=== PATIENT | female | born 1965 | race Caucasian/White ===

== ENCOUNTER 2023-03-24 10:13 | Observation (INO) ==
[2023-03-24] MEDS ORDERED: KETOROLAC TROMETHAMINE 15 MG/ML VIAL IV STA (10:32)
[2023-03-24] MEDS ORDERED: ONDANSETRON INJ 2 MG/ML 2 ML VIAL IV STA (10:32)
[2023-03-24] MEDS ORDERED: SODIUM CHLORIDE 0.9% 500 ML IV STA (10:32)
--- NOTE | 2023-03-24 10:37 | Emergency Department Note ---
Impression & Plan Acute appendicitis ED Provider Note Provider: Harry Dudley MD DATE OF SERVICE: 03/24/2023 CHIEF COMPLAINT: Right lower quadrant pain HISTORY OF PRESENT ILLNESS: Patient is a 57-year-old female history of hypertension and obesity presenting here today with the onset last night just before bed of some pain starting in her right lower abdomen. This is persisted overnight and was difficult for her to sleep. Continued today and worsened some. Denies any urinary issues or diarrhea. States she had onset of nausea and vomiting this morning. Given ongoing and worsening pain with the symptoms came here for evaluation. No fevers or trauma reported. Again denies urinary symptoms. Denies significant pain in the back. Denies left-sided abdominal pain. Denies heartburn or chest pain. No radiation of the pain down the legs. PAST MEDICAL HISTORY: As noted above MEDICATIONS: Reviewed all medications SOCIAL HISTORY: Non-smoker PHYSICAL EXAM: GENERAL: alert and oriented in no acute distress on stretcher Head: normocephalic and atraumatic EYES: No injection, discharge or icterus. NECK: Trachea midline. ENT: Mucous membranes pink and moist. LUNGS: Airway patent. No retractions or tachypnea HEART: Regular rate and rhythm. ABDOMEN: Soft with some localized tenderness in the right lower quadrant. No left-sided abdominal tenderness. Negative Graf sign. No significant right flank or CVA tenderness appreciated. SKIN: Acyanotic, warm, dry, without rashes EXTREMITIES: Without swelling, tenderness or deformity NEUROLOGICAL: No focal deficits. No aphasia. No facial droop or slurred speech. Ambulatory. EK bpm sinus tachycardia PVC or PAC. No acute ST segment elevation with a QTc of 422. CONTINUOUS CARDIAC MONITORING: was ordered and showed a heart rate of 100s-110s bpm in sinus tachycardia Patient's laboratory studies and imaging reviewed. Differential includes Appendicitis, infections, diverticulitis, UTI, obstruction, mesenteric ischemia, aortic pathology, inflammatory bowel disease, renal colic, PUD, pancreatitis, biliary pathology, hernia, volvulus, constipation, as well as other pathologies. IMPRESSION/MEDICAL DECISION MAKING: Patient presents onset last night of some pain in the right lower quadrant. Does not radiate to the flank no CVA tenderness. Has been fairly constant nature. Seems bit atypical for kidney stone but on the differential. Question possible gastrointestinal issue such as possible appendicitis or colitis althou gh not having diarrhea. Does report some nausea and episode of vomiting. Denies any chest pain or heartburn symptoms. Not significant tender in the upper abdomen and lower suspicion for biliary pathology at this time. Will complete EKG and troponin given her age for completeness however. Basic labs sent. Will complete CT scan of the pelvis to look for intra-abdominal complications prickly in the right lower quadrant region. Blood work with significant leukocytosis to 16.3. Slight anemia 11.6. Normal platelet count. No evidence of significant chemistry abnormalities or signs of hepatitis or pancreatitis. Troponin within normal limits. Urinalysis with some blood but no signs of infection otherwise. CT abdomen pelvis with findings consistent with acute appendicitis with 13 mm appendix without evidence of perforation or abscess. Updated the patient and at bedside. Ordered Zosyn for antibiotic coverage. Patient's pain is a bit improved with medication here. N.p.o. since yesterday. Discussed with the general surgery team will evaluate for further care. DIAGNOSIS: Acute appendicitis DISPOSITION: Discussed with the general surgery team here for further care with the plan for OR Past Med/Surg History Medical History HTN (hypertension), benign Surgical History History of tooth extraction Hx of section Hx of eye surgery Family History Grandmother Breast cancer Other No family history of adverse response to anesthesia Denies family history of Ovarian cancer Prostate cancer Myocardial infarction Colorectal cancer Social History Smoking Status: Never smoker Second Hand Exposure: Yes ( A CHILD); Do You Dip or Chew Tobacco: No; Hx Alcohol Use: Yes Alcohol Intake Frequency: Monthly or Less Alcohol Intake Frequency Comment: Occasional Hx Substance Use: No Preferred Language: Guinean Communication Ability: Effective Maintenance Mechanic Technician Required: No Beliefs That Will Affect Care: None marital status: Current Living Situation: Spouse current occupational status: employed current occupation: dispatcher How many Children do You have: 3 Feels Safe at Home: Yes Childhood Exposure to Second-Hand Smoke: Yes Diet: regular caffeine: Yes Dental Care, Regularly: Yes Physical Activity Frequency: Does not Exercise Seatbelt Use: always Sunscreen Use: Yes Assistive Devices: Glasses Allergies Allergies Allergy/AdvReac Type Severity Reaction Status Date / Time No Known Allergies Allergy Verified 03/24/23 12:54 Home Meds Previous Rx's Medication Instructions Recorded lisinopril 20 mg tablet 20 mg PO QAM #90 tabs 10/16/22 Results & Data (ED) Vital Signs Vital Signs - 24 hr 03/24/23 10:19 03/24/23 10:41 03/24/23 10:41 Temperature 36.9 C Temperature Source Temporal Artery Scan Pulse Rate 102 H Pulse Rate [Apical] Pulse Rate [Finger] 112 H Pulse Rhythm [Apical] Respiratory Rate 18 16 Respiratory Effort / Characteristics Non-Labored Spontaneous Non-Labored Respiratory Depth Normal Normal Respiratory Pattern Regular Blood Pressure [Left Arm] 138/94 Blood Pressure Mean [Left Arm] 108 Blood Pressure Position [Left Arm] Pulse Oximetry 95 99 99 Oxygen Delivery Method Room Air Room Air Room Air Oxygen Flow Rate Sepsis Recent Fever Within 48 Hours No Sepsis New/Unexplained Change in Mental Status No Sepsis Action Taken by Nursing No Action Required 03/24/23 12:14 03/24/23 13:22 03/24/23 15:54 Temperature 37.1 C 36 C L Temperature Source Oral Temporal Artery Scan Pulse Rate Pulse Rate [Apical] 85 94 H Pulse Rate [Finger] 87 Pulse Rhythm [Apical] Regular Regular Respiratory Rate 18 20 20 Respiratory Effort / Characteristics Non-Labored Spontaneous Normal for Patient Non-Labored Spontaneous Respiratory Depth Normal Normal Respiratory Pattern Regular Regular Blood Pressure [Left Arm] 146/81 H 168/93 H 165/93 H Blood Pressure Mean [Left Arm] 102 118 117 Blood Pressure Position [Left Arm] Semi-fowlers Semi-fowlers Pulse Oximetry 96 96 98 Oxygen Delivery Method Room Air Room Air Nasal Cannula Oxygen Flow Rate 3 Sepsis Recent Fever Within 48 Hours Sepsis New/Unexplained Change in Mental Status Sepsis Action Taken by Nursing 03/24/23 16:05 03/24/23 16:15 03/24/23 16:25 Temperature 36.6 C Temperature Source Oral Pulse Rate Pulse Rate [Apical] 93 H 88 85 Pulse Rate [Finger] Pulse Rhythm [Apical] Regular Regular Regular Respiratory Rate 20 22 16 Respiratory Effort / Characteristics Non-Labored Spontaneous Non-Labored Spontaneous Non-Labored Spontaneous Respiratory Depth Normal Normal Normal Respiratory Pattern Regular Regular Regular Blood Pressure [Left Arm] 153/74 H 154/84 H 161/80 H Blood Pressure Mean [Left Arm] 100 107 107 Blood Pressure Position [Left Arm] Semi-fowlers Semi-fowlers Semi-fowlers Pulse Oximetry 94 98 98 Oxygen Delivery Method Nasal Cannula Nasal Cannula Nasal Cannula Oxygen Flow Rate 2 2 2 Sepsis Recent Fever Within 48 Hours Sepsis New/Unexplained Change in Mental Status Sepsis Action Taken by Nursing 03/24/23 16:40 03/24/23 16:55 Temperature Temperature Source Pulse Rate Pulse Rate [Apical] 85 81 Pulse Rate [Finger] Pulse Rhythm [Apical] Regular Regular Respiratory Rate 18 16 Respiratory Effort / Characteristics Non-Labored Spontaneous Non-Labored Spontaneous Respiratory Depth Normal Normal Respiratory Pattern Regular Regular Blood Pressure [Left Arm] 157/80 H 146/83 H Blood Pressure Mean [Left Arm] 105 104 Blood Pressure Position [Left Arm] Semi-fowlers Semi-fowlers Pulse Oximetry 97 96 Oxygen Delivery Method Nasal Cannula Nasal Cannula Oxygen Flow Rate 2 2 Sepsis Recent Fever Within 48 Hours Sepsis New/Unexplained Change in Mental Status Sepsis Action Taken by Nursing Laboratory Data 03/24/23 10:36 03/24/23 10:36 Lab Results 03/24/23 03/24/23 03/24/23 Range/Units 10:36 10:36 10:36 WBC 16.35 H (4.8-10.8) K/ul RBC 4.66 (4.20-5.40) M/uL Hgb 11.6 L (12.0-16.0) g/dl Hct 38.2 (37.0-47.0) % MCV 82.0 (80.0-100.0) fL MCH 24.9 L (25.0-34.0) pg MCHC 30.4 L (32.0-36.0) g/dL RDW Std Deviation 47.8 H (36.4-46.3) fL RDW Coeff of Elliott 16.1 H (11.5-14.5) % Plt Count 283 (130-400) K/uL MPV 9.3 L (9.4-12.4) fL Immature Gran % (Auto) 0.5 % Neut % (Auto) 79.4 % Lymph % (Auto) 13.3 % Fleming % (Auto) 5.3 % Eos % (Auto) 1.3 % Baso % (Auto) 0.2 % Neut # (Auto) 12.97 H (1.40-6.50) K/uL Lymph # (Auto) 2.18 (1.2-3.4) K/uL Fleming # (Auto) 0.87 H (0.11-0.59) K/uL Eos # (Auto) 0.21 (0-0.50) K/uL Baso # (Auto) 0.04 (0-0.2) K/uL Immature Gran # (Auto) 0.08 (0.01-0.20) K/uL Sodium 137 (136-145) mmol/L Potassium 4.2 (3.5-5.1) mmol/L Chloride 102 (98-107) mmol/L Carbon Dioxide 27 (21-32) mmol/L Anion Gap 8 (3-11) BUN 13 (6-23) mg/dl Creatinine 0.80 (0.6-1.2) mg/dl Est Cr Clr Drug Dosing Not Reportable Est GFR ( Amer) 94.9 ml/min Est GFR (Non-Af Amer) 81.8 ml/min BUN/Creatinine Ratio 16.3 (10-20) Glucose 128 H (70-99(Fasting)) mg/dl Calcium 9.4 (8.6-10.3) mg/dl Total Bilirubin 0.6 (0.2-1.0) mg/dl AST 13 (13-39) U/L ALT 16 (7-52) U/L Alkaline Phosphatase 99 (34-104) U/L Troponin I High Sens 4.6 (0-14) pg/ml Total Protein 7.7 (6.0-8.3) gm/dl Albumin 4.2 (3.4-5.0) gm/dl Globulin 3.5 (2.5-4.0) gm/dl Albumin/Globulin Ratio 1.2 (0.9-2) Lipase 10 L (11-82) U/L Urine Color Yellow Urine Appearance Clear (Clear) Urine pH 5.5 (4.5-7.5) Ur Specific [place] 1.021 (1.000-1.030) Urine Protein Negative (Negative) Urine Glucose (UA) Negative (Negative) Urine Ketones Negative (Negative) Urine Blood 3+ H (Negative) Urine Nitrite Negative (Negative) Urine Bilirubin Negative (Negative) Urine Urobilinogen Negative (Negative) Ur Leukocyte Esterase Negative (Negative) Urine WBC (Auto) 1-5 (0-5) /hpf Urine RBC (Auto) 10-30 H (0-4) /hpf U Hyaline Cast (Auto) 0 (0-5) /lpf U Epithel Cells (Auto) >30 H (0-5) /lpf Urine Bacteria (Auto) Negative (Negative) SARS-CoV-2, RNA, NAAT (NEGATIVE) 03/24/23 Range/Units 10:54 WBC (4.8-10.8) K/ul RBC (4.20-5.40) M/uL Hgb (12.0-16.0) g/dl Hct (37.0-47.0) % MCV (80.0-100.0) fL MCH (25.0-34.0) pg MCHC (32.0-36.0) g/dL RDW Std Deviation (36.4-46.3) fL RDW Coeff of Elliott (11.5-14.5) % Plt Count (130-400) K/uL MPV (9.4-12.4) fL Immature Gran % (Auto) % Neut % (Auto) % Lymph % (Auto) % Fleming % (Auto) % Eos % (Auto) % Baso % (Auto) % Neut # (Auto) (1.40-6.50) K/uL Lymph # (Auto) (1.2-3.4) K/uL Fleming # (Auto) (0.11-0.59) K/uL Eos # (Auto) (0-0.50) K/uL Baso # (Auto) (0-0.2) K/uL Immature Gran # (Auto) (0.01-0.20) K/uL Sodium (136-145) mmol/L Potassium (3.5-5.1) mmol/L Chloride (98-107) mmol/L Carbon Dioxide (21-32) mmol/L Anion Gap (3-11) BUN (6-23) mg/dl Creatinine (0.6-1.2) mg/dl Est Cr Clr Drug Dosing Est GFR ( Amer) ml/min Est GFR (Non-Af Amer) ml/min BUN/Creatinine Ratio (10-20) Glucose (70-99(Fasting)) mg/dl Calcium (8.6-10.3) mg/dl Total Bilirubin (0.2-1.0) mg/dl AST (13-39) U/L ALT (7-52) U/L Alkaline Phosphatase (34-104) U/L Troponin I High Sens (0-14) pg/ml Total Protein (6.0-8.3) gm/dl Albumin (3.4-5.0) gm/dl Globulin (2.5-4.0) gm/dl Albumin/Globulin Ratio (0.9-2) Lipase (11-82) U/L Urine Color Urine Appearance (Clear) Urine pH (4.5-7.5) Ur Specific [place] (1.000-1.030) Urine Protein (Negative) Urine Glucose (UA) (Negative) Urine Ketones (Negative) Urine Blood (Negative) Urine Nitrite (Negative) Urine Bilirubin (Negative) Urine Urobilinogen (Negative) Ur Leukocyte Esterase (Negative) Urine WBC (Auto) (0-5) /hpf Urine RBC (Auto) (0-4) /hpf U Hyaline Cast (Auto) (0-5) /lpf U Epithel Cells (Auto) (0-5) /lpf Urine Bacteria (Auto) (Negative) SARS-CoV-2, RNA, NAAT NEGATIVE (NEGATIVE) Administered Medications Discontinued Medications Bupivacaine HCl/Epinephrine Bitart (Bupivacaine/Epinephrine 0.5% Mpf 1:200,000 30 Ml Vial) Confirm Administered Dose 30 ml .ROUTE .STK-MED ONE Stop: 03/24/23 14:07 Last Admin: 03/24/23 15:31 Dose: 30 ml Documented By: ZEYAD Sodium Chloride (Nss) 500 mls @ 999 mls/hr IV .Q31M STA Stop: 03/24/23 11:02 Last Infusion: 03/24/23 12:24 Dose: 0 mls/hr Documented By: Admin: 03/24/23 10:51 Dose: 999 mls/hr Documented By: ABBIE Piperacillin Sod/Tazobactam Sod (Zosyn) 4.5 gm in 120 mls @ 240 mls/hr IV NOW ONE Stop: 03/24/23 12:48 Last Infusion: 03/24/23 13:07 Dose: 0 mls/hr Documented By: Admin: 03/24/23 12:30 Dose: 240 mls/hr Documented By: KOTA Ioversol (Ioversol 350 Mg 125ml Prefilled Syringe) 116 ml IV ONCE ONE Stop: 03/24/23 11:55 Last Admin: 03/24/23 11:54 Dose: 116 ml Documented By: ELIZABETH Ketorolac Tromethamine (Ketorolac Tromethamine 15 Mg/Ml Vial) 10 mg IV NOW STA Stop: 03/24/23 10:33 Last Admin: 03/24/23 10:52 Dose: 10 mg Documented By: ABBIE Ondansetron HCl (Ondansetron Inj 2 Mg/Ml 2 Ml Vial) 4 mg IV NOW STA Stop: 03/24/23 10:33 Last Admin: 03/24/23 10:51 Dose: 4 mg Documented By: ABBIE Imaging Data Radiologist's Impression: Abdomen/Pelvis CT 03/24/23 10:[address] WITH IV CONTRAST CT DOSE: 1698.76 mGy.cm HISTORY: RLQ pain, nausea/vomiting TECHNIQUE: Multiaxial CT images of the abdomen and pelvis were performed following the use of intravenous contrast. A dose lowering technique was utilized adhering to the principles of ALARA. COMPARISON STUDY: None. FINDINGS: The lung bases are clear. Bilateral L5 spondylolysis with associated 7 mm of anterolisthesis. No acute fractures identified. Hepatic steatosis. The main portal vein is patent. Cholelithiasis. No gallbladder wall thickening. The pancreas, spleen, and adrenal glands are unremarkable. There is a 4 mm fat- containing lesion within the left kidney. This is consistent with a small angiomyolipoma. Normal right kidney. No hydronephrosis. Normal caliber abdominal aorta. No retroperitoneal or pelvic lymphadenopathy. The bladder, uterus, bilateral adnexa are within normal limits. No dilated loops of bowel to suggest an obstruction. Colonic diverticulosis. No evidence for acute diverticulitis. There is a thick-walled, mildly dilated, inflamed appendix consistent with acute appendicitis. There is associated periappendiceal fat stranding. No perforation or abscess identified. The appendix measures up to 13 mm in diameter. IMPRESSION: 1. Acute appendicitis. Surgical consultation recommended. 2. Cholelithiasis. 3. Hepatic steatosis. 4. Colonic diverticulosis. No evidence for acute diverticulitis. ACT 112: Negative or not required by law. Electronically signed by: Kulwant Laguerre M.D. 03/24/2023 12:14 PM Discharge Plan Visit Data Chief Complaint: Flank Pain Stated Complaint: R FLANK PAIN,VOMITING, ED Provider: Harry Dudley Discharge Problem: Acute appendicitis Patient Disposition: Being Evaluated by Surgeon Discharge Instructions Interventions: ED Discharge Assessment Last Done: 03/24/23 13:07
[2023-03-24 10:56] LABS: Appearance Urine Clear (Clear); Bacteria Urine Automated Negative (Negative); Basophils # (auto) 0.04 K/uL (0-0.2); Basophils % (auto) 0.2 %; Bilirubin Urine Negative (Negative); Blood Urine 3+ (Negative); Cast Urine Automated 0 /lpf (0-5); Color Urine Yellow; Eosinophils # (auto) 0.21 K/uL (0-0.50); Eosinophils % (auto) 1.3 %; Epithelial Cell Urine Auto >30 /lpf (0-5); Glucose Urine UA Negative (Negative); Hematocrit (blood only) 38.2 % (37.0-47.0); Hemoglobin 11.6 g/dl (12.0-16.0); Immature Granulocytes # (auto) 0.08 K/uL (0.01-0.20); Immature Granulocytes % (auto) 0.5 %; Ketones Urine Negative (Negative); Leukocyte Esterase Urine Negative (Negative); Lymphocytes # (auto) 2.18 K/uL (1.2-3.4); Lymphocytes % (auto) 13.3 %; Mean Corpuscular Hemoglobin 24.9 pg (25.0-34.0); Mean Corpuscular Hgb Conc 30.4 g/dL (32.0-36.0); Mean Platelet Volume 9.3 fL (9.4-12.4); Monocytes # (auto) 0.87 K/uL (0.11-0.59); Monocytes % (auto) 5.3 %; Neutrophils # (auto) 12.97 K/uL (1.40-6.50); Neutrophils % (auto) 79.4 %; Nitrite Urine Negative (Negative); Platelet Count 283 K/uL (130-400); Protein Urine Negative (Negative); RDW Coefficient of Variation 16.1 % (11.5-14.5); RDW Standard Deviation 47.8 fL (36.4-46.3); Red Blood Count 4.66 M/uL (4.20-5.40); Specific Gravity Urine 1.021 (1.000-1.030); Urobilinogen Urine Negative (Negative); White Blood Count 16.35 K/ul (4.8-10.8); pH Urine 5.5 (4.5-7.5)
[2023-03-24 11:11] LABS: Alanine Aminotransferase 16 U/L (7-52); Albumin Globulin Ratio 1.2 (0.9-2); Albumin Level 4.2 gm/dl (3.4-5.0); Alkaline Phosphatase 99 U/L (34-104); Anion Gap 8 (3-11); Aspartate Aminotransferase 13 U/L (13-39); BUN Creatinine Ratio 16.3 (10-20); Bilirubin,Total 0.6 mg/dl (0.2-1.0); Blood Urea Nitrogen 13 mg/dl (6-23); Calcium 9.4 mg/dl (8.6-10.3); Carbon Dioxide 27 mmol/L (21-32); Chloride 102 mmol/L (98-107); Est GFR (African American) 94.9 ml/min; Est GFR (Non-African American) 81.8 ml/min; Globulin 3.5 gm/dl (2.5-4.0); Glucose 128 mg/dl (70-99(Fasting)); Lipase 10 U/L (11-82); Potassium 4.2 mmol/L (3.5-5.1); Sodium 137 mmol/L (136-145); Total Protein 7.7 gm/dl (6.0-8.3)
[2023-03-24 11:17] LABS: Troponin I High Sensitivity 4.6 pg/ml (0-14)
[2023-03-24] MEDS ORDERED: IOVERSOL 350 MG 125mL Prefilled Syringe IV ONE (11:54)
--- NOTE | 2023-03-24 12:16 | CT Scan Report ---
ABDOMEN AND PELVIS CT WITH IV CONTRAST CT DOSE: 1698.76 mGy.cm HISTORY: RLQ pain, nausea/vomiting TECHNIQUE: Multiaxial CT images of the abdomen and pelvis were performed following the use of intrave nous contrast. A dose lowering technique was utilized adhering to the principles of ALARA. COMPARISON STUDY: None. FINDINGS: The lung bases are clear. Bilateral L5 spondylolysis with associated 7 mm of anterolisthesi s. No acute fractures identified. Hepatic steatosis. The main portal vein is patent. Cholelithiasis. No gallbladder wall thickening. The pancreas, spleen, and adrenal glands are unremarkable. There is a 4 mm fat-containing lesion within the left kidney. This is consistent with a small angiomyolipoma. N ormal right kidney. No hydronephrosis. Normal caliber abdominal aorta. No retroperitoneal or pelvic l ymphadenopathy. The bladder, uterus, bilateral adnexa are within normal limits. No dilated loops of b owel to suggest an obstruction. Colonic diverticulosis. No evidence for acute diverticulitis. There i s a thick-walled, mildly dilated, inflamed appendix consistent with acute appendicitis. There is asso ciated periappendiceal fat stranding. No perforation or abscess identified. The appendix measures up to 13 mm in diameter. IMPRESSION: 1. Acute appendicitis. Surgical consultation recommended. 2. Cholelithiasis. 3. Hepatic steatosis. 4. Colonic diverticulosis. No evidence for acute diverticulitis. ACT 112: Negative or not required by law. Electronically signed by: Kulwant Laguerre M.D. 03/24/2023 12:14 PM
[2023-03-24] MEDS ORDERED: PIPERACILLIN/TAZOBACTAM 4.5 GM/120 ML BAG IV ONE (12:19)
--- NOTE | 2023-03-24 12:53 | History & Physical Report ---
Date of Service March 24, 2023 Assessment & Plan (1) Acute appendicitis: Plan 57 year-old female with RLQ abdominal pain that started last evening with associated nausea and vomiting x [address] scan showing acute appendicitis without perforation or rupture. Leukocytosis of 16k, afebrile, hemodynamically stable. Plan: Discussed imaging and lab findings consistent with acute appendicitis with patient. Discussed indication for laparoscopic appendectomy. Discussed procedure and risks as well as expected recovery time and restrictions. She would like to proceed with surgery. Keep NPO already received Zosyn in ED Dr. Minaya to see patient in preop and obtain informed consent History of Present Illness Chief Complaint: RLQ abdominal pain Primary Care Provider: Helga Evans MD Alyssa is a 57 year-old female with history of hypertension presented to ED with complaint of RLQ abdominal pain that began around 8 pm last evening which progressively increased in severity with associated nausea and one episode of vomiting this morning. No fevers, chills, chest pain, shortness of breath, changes of bowel habits, diarrhea, constipation, or blood in stools, no difficulty urinating or blood in urine. Prior history of c-sections. No history of blood clots or bleeding disorders. No blood thinning agents. ER work-up included labs which showed leukocytosis of 16k. CT scan of abdomen and pelvis with IV contrast showing dilated thick walled appendix measuring 13 mm with periappendiceal stranding consistent with acute appendicitis. She currently states her pain is minimal but had pain medication about 1.5 hour ago which controlled pain. Allergies Allergy/AdvReac Type Severity Reaction Status Date / Time No Known Allergies Allergy Verified 03/24/23 12:54 Home Medications Medication Instructions Recorded Confirmed Type lisinopril 20 mg tablet 20 mg PO QAM #90 tabs 10/16/22 03/24/23 Rx Past Med/Surg History Medical History HTN (hypertension), benign Surgical History History of tooth extraction Hx of section Hx of eye surgery Family History Grandmother Breast cancer Other No family history of adverse response to anesthesia Denies family history of Ovarian cancer Prostate cancer Myocardial infarction Colorectal cancer Social History Smoking Status: Never smoker Second Hand Exposure: Yes ( A CHILD); Do You Dip or Chew Tobacco: No; Hx Alcohol Use: Yes Alcohol Intake Frequency: Monthly or Less Alcohol Intake Frequency Comment: Occasional Hx Substance Use: No Preferred Language: Iranian Communication Ability: Effective Nurse Tech Required: No Beliefs That Will Affect Care: None marital status: Current Living Situation: Spouse current occupational status: employed current occupation: dispatcher How many Children do You have: 3 Feels Safe at Home: Yes Childhood Exposure to Second-Hand Smoke: Yes Diet: regular caffeine: Yes Dental Care, Regularly: Yes Physical Activity Frequency: Does not Exercise Seatbelt Use: always Sunscreen Use: Yes Assistive Devices: Glasses Review of Systems Review of Systems: All systems reviewed & are unremarkable except as noted in HPI & below Physical Exam Constitutional: WD/WN, vitals as above + morbidly obese, cooperative and comfortable; no acute distress, not ill appearing and not diaphoretic Respiratory: normal respiratory effort, lungs clear to auscultation Cardiovascular: Rate/Rhythm: regular rhythm and + tachycardic; not irregularly irregular Heart Sounds: normal S1 and normal S2; no murmur Gastrointestinal (Abdomen): Inspection/Auscultation: abdomen normal to inspection; abdomen not distended Percussion/Palpation: + abdomen tender (Right mid and lower abdomen), + guarding (voluntary in the RLQ) and abdomen soft; abdomen not rigid and abdomen not firm Skin: no rashes, warm and dry Psychiatric: A+Ox3, euthymic affect Results & Data Results & Data Vital Signs (Past 12 Hours) Vital Signs Temp Pulse Pulse Resp BP Pulse Ox O2 Del Method 03/24/23 12:14 87 18 146/81 H 96 Room Air 03/24/23 10:41 99 Room Air 03/24/23 10:41 112 H 16 138/94 99 Room Air 03/24/23 10:19 36.9 C 102 H 18 95 Room Air Laboratory Results 03/24/23 03/24/23 03/24/23 Range/Units 10:54 10:36 10:36 WBC (4.8-10.8) K/ul RBC (4.20-5.40) M/uL Hgb (12.0-16.0) g/dl Hct (37.0-47.0) % MCV (80.0-100.0) fL MCH (25.0-34.0) pg MCHC (32.0-36.0) g/dL RDW Std Deviation (36.4-46.3) fL RDW Coeff of Elliott (11.5-14.5) % Plt Count (130-400) K/uL MPV (9.4-12.4) fL Immature Gran % (Auto) % Neut % (Auto) % Lymph % (Auto) % [place] % (Auto) % Eos % (Auto) % Baso % (Auto) % Neut # (Auto) (1.40-6.50) K/uL Lymph # (Auto) (1.2-3.4) K/uL [place] # (Auto) (0.11-0.59) K/uL Eos # (Auto) (0-0.50) K/uL Baso # (Auto) (0-0.2) K/uL Immature Gran # (Auto) (0.01-0.20) K/uL Sodium 137 (136-145) mmol/L Potassium 4.2 (3.5-5.1) mmol/L Chloride 102 (98-107) mmol/L Carbon Dioxide 27 (21-32) mmol/L Anion Gap 8 (3-11) BUN 13 (6-23) mg/dl Creatinine 0.80 (0.6-1.2) mg/dl Est Cr Clr Drug Dosing Not Reportable Est GFR ( Amer) 94.9 ml/min Est GFR (Non-Af Amer) 81.8 ml/min BUN/Creatinine Ratio 16.3 (10-20) Glucose 128 H (70-99(Fasting)) mg/dl Calcium 9.4 (8.6-10.3) mg/dl Total Bilirubin 0.6 (0.2-1.0) mg/dl AST 13 (13-39) U/L ALT 16 (7-52) U/L Alkaline Phosphatase 99 (34-104) U/L Troponin I High Sens 4.6 (0-14) pg/ml Total Protein 7.7 (6.0-8.3) gm/dl Albumin 4.2 (3.4-5.0) gm/dl Globulin 3.5 (2.5-4.0) gm/dl Albumin/Globulin Ratio 1.2 (0.9-2) Lipase 10 L (11-82) U/L Urine Color Yellow Urine Appearance Clear (Clear) Urine pH 5.5 (4.5-7.5) Ur Specific [place] 1.021 (1.000-1.030) Urine Protein Negative (Negative) Urine Glucose (UA) Negative (Negative) Urine Ketones Negative (Negative) Urine Blood 3+ H (Negative) Urine Nitrite Negative (Negative) Urine Bilirubin Negative (Negative) Urine Urobilinogen Negative (Negative) Ur Leukocyte Esterase Negative (Negative) Urine WBC (Auto) 1-5 (0-5) /hpf Urine RBC (Auto) 10-30 H (0-4) /hpf U Hyaline Cast (Auto) 0 (0-5) /lpf U Epithel Cells (Auto) >30 H (0-5) /lpf Urine Bacteria (Auto) Negative (Negative) SARS-CoV-2, RNA, NAAT NEGATIVE (NEGATIVE) 03/24/23 Range/Units 10:36 WBC 16.35 H (4.8-10.8) K/ul RBC 4.66 (4.20-5.40) M/uL Hgb 11.6 L (12.0-16.0) g/dl Hct 38.2 (37.0-47.0) % MCV 82.0 (80.0-100.0) fL MCH 24.9 L (25.0-34.0) pg MCHC 30.4 L (32.0-36.0) g/dL RDW Std Deviation 47.8 H (36.4-46.3) fL RDW Coeff of [place] 16.1 H (11.5-14.5) % Plt Count 283 (130-400) K/uL MPV 9.3 L (9.4-12.4) fL Immature Gran % (Auto) 0.5 % Neut % (Auto) 79.4 % Lymph % (Auto) 13.3 % [place] % (Auto) 5.3 % Eos % (Auto) 1.3 % Baso % (Auto) 0.2 % Neut # (Auto) 12.97 H (1.40-6.50) K/uL Lymph # (Auto) 2.18 (1.2-3.4) K/uL [place] # (Auto) 0.87 H (0.11-0.59) K/uL Eos # (Auto) 0.21 (0-0.50) K/uL Baso # (Auto) 0.04 (0-0.2) K/uL Immature Gran # (Auto) 0.08 (0.01-0.20) K/uL Sodium (136-145) mmol/L Potassium (3.5-5.1) mmol/L Chloride (98-107) mmol/L Carbon Dioxide (21-32) mmol/L Anion Gap (3-11) BUN (6-23) mg/dl Creatinine (0.6-1.2) mg/dl Est Cr Clr Drug Dosing Est GFR ( Amer) ml/min Est GFR (Non-Af Amer) ml/min BUN/Creatinine Ratio (10-20) Glucose (70-99(Fasting)) mg/dl Calcium (8.6-10.3) mg/dl Total Bilirubin (0.2-1.0) mg/dl AST (13-39) U/L ALT (7-52) U/L Alkaline Phosphatase (34-104) U/L Troponin I High Sens (0-14) pg/ml Total Protein (6.0-8.3) gm/dl Albumin (3.4-5.0) gm/dl Globulin (2.5-4.0) gm/dl Albumin/Globulin Ratio (0.9-2) Lipase (11-82) U/L Urine Color Urine Appearance (Clear) Urine pH (4.5-7.5) Ur Specific [place] (1.000-1.030) Urine Protein (Negative) Urine Glucose (UA) (Negative) Urine Ketones (Negative) Urine Blood (Negative) Urine Nitrite (Negative) Urine Bilirubin (Negative) Urine Urobilinogen (Negative) Ur Leukocyte Esterase (Negative) Urine WBC (Auto) (0-5) /hpf Urine RBC (Auto) (0-4) /hpf U Hyaline Cast (Auto) (0-5) /lpf U Epithel Cells (Auto) (0-5) /lpf Urine Bacteria (Auto) (Negative) SARS-CoV-2, RNA, NAAT (NEGATIVE) Diagnostic Findings ABDOMEN AND PELVIS CT WITH IV CONTRAST CT DOSE: 1698.76 mGy.cm HISTORY: RLQ pain, nausea/vomiting TECHNIQUE: Multiaxial CT images of the abdomen and pelvis were performed following the use of intravenous contrast. A dose lowering technique was utilized adhering to the principles of ALARA. COMPARISON STUDY: None. FINDINGS: The lung bases are clear. Bilateral L5 spondylolysis with associated 7 mm of anterolisthesis. No acute fractures identified. Hepatic steatosis. The main portal vein is patent. Cholelithiasis. No gallbladder wall thickening. The pancreas, spleen, and adrenal glands are unremarkable. There is a 4 mm fat- containing lesion within the left kidney. This is consistent with a small angiomyolipoma. Normal right kidney. No hydronephrosis. Normal caliber abdominal aorta. No retroperitoneal or pelvic lymphadenopathy. The bladder, uterus, bilateral adnexa are within normal limits. No dilated loops of bowel to suggest an obstruction. Colonic diverticulosis. No evidence for acute diverticulitis. There is a thick-walled, mildly dilated, inflamed appendix consistent with acute appendicitis. There is associated periappendiceal fat stranding. No perforation or abscess identified. The appendix measures up to 13 mm in diameter. IMPRESSION: 1. Acute appendicitis. Surgical consultation recommended. 2. Cholelithiasis. 3. Hepatic steatosis. 4. Colonic diverticulosis. No evidence for acute diverticulitis. Code Status & VTE Plan VTE Prophylaxis Plan VTE Prophylaxis will be ordered: Yes Supervising Physician Co-Signing Physician Notes I have seen and examined the patient personally and agree with the above assessment and plan. In brief she has a 1 day history of severe lower quadrant abdominal pain, nausea, vomiting. She denies fevers. White blood cell count 16. CT scan demonstrates appendicitis. I discussed the risks and benefits of a laparoscopic appendectomy with her. All her questions were answered, she is agreeable to proceed. Consent has been obtained. Will take her to the operating room at the earliest convenience.
[2023-03-24] MEDS ORDERED: MIDAZOLAM HCL 1 MG/ML 2ML VIAL ONE (13:57)
[2023-03-24] MEDS ORDERED: fentaNYL citrate PF 100 MCG/2 ML VIAL ONE (13:57)
[2023-03-24] MEDS ORDERED: BUPIVACAINE/EPINEPHRINE 0.5% MPF 1:200,000 30 ML VIAL ONE (14:06)
--- NOTE | 2023-03-24 14:19 | Electrocardiogram Report ---
Test Reason : Blood Pressure : / mmHG Vent. Rate : 101 BPM Atrial Rate : 101 BPM P-R Int : 160 ms QRS Dur : 080 ms QT Int : 326 ms P-R-T Axes : 047 018 047 degrees QTc Int : 422 ms Sinus tachycardia Nonspecific ST abnormality Abnormal ECG No previous ECGs available Confirmed by Teto Pineda ([id number]) on 03/24/2023 2:18:35 PM Referred By: REFERRED SELF Confirmed By:Asaf Pineda
--- NOTE | 2023-03-24 14:32 | Anesthesiology Consultation ---
Date of Service March 24, 2023 Assessment & Plan Chart Review Chart Review: Acceptable Risk for Surgery Consults Requested none History Surgery Operation Date: 03/24/23 10:30 Proposed Procedures p Laparoscopic Appendectomy - Piyush Minaya MD Height/Weight Weight: 145.6 kg Allergies Allergy/AdvReac Type Severity Reaction Status Date / Time No Known Allergies Allergy Verified 03/24/23 12:54 Medications Home Medications Medication Instructions Recorded Confirmed Last Taken lisinopril 20 mg tablet 20 mg PO QAM #90 tabs 10/16/22 03/24/23 03/23/23 NPO Date Last Intake of Fluids: 03/24/23 Time Last Intake of Fluids: 09:00 Last Intake of Fluids Comment: 4 oz water Date Last Intake of Solids: 03/23/23 Time Last Intake of Solids: 18:00 Past Medical History Medical History HTN (hypertension), benign Past Family History Family History Grandmother Breast cancer Other No family history of adverse response to anesthesia Denies family history of Ovarian cancer Prostate cancer Myocardial infarction Colorectal cancer Past Surgical History Surgical History History of tooth extraction Hx of section Hx of eye surgery Social History Smoking Status: Never smoker Do You Dip or Chew Tobacco: No Hx Alcohol Use: Yes alcohol intake frequency: holidays/special occasions only Hx Substance Use: No substance use type: does not use Physical Exam Vital Signs Last Vital Signs Temp 37.1 C 03/24/23 13:22 Pulse 85 03/24/23 13:22 Resp 20 03/24/23 13:22 BP 168/93 H 03/24/23 13:22 Pulse Ox 96 03/24/23 13:22 O2 Del Method Room Air 03/24/23 13:22 Testing Laboratory Results 03/24/23 10:36 03/24/23 10:36 Urine Color Yellow 03/24/23 10:36 Urine Appearance Clear (Clear) 03/24/23 10:36 Urine pH 5.5 (4.5-7.5) 03/24/23 10:36 Ur Specific [place] 1.021 (1.000-1.030) 03/24/23 10:36 Urine Protein Negative (Negative) 03/24/23 10:36 Urine Glucose (UA) Negative (Negative) 03/24/23 10:36 Urine Ketones Negative (Negative) 03/24/23 10:36 Urine Nitrite Negative (Negative) 03/24/23 10:36 Ur Leukocyte Esterase Negative (Negative) 03/24/23 10:36 Urine WBC (Auto) 1-5 /hpf (0-5) 03/24/23 10:36 Urine RBC (Auto) 10-30 /hpf (0-4) H 03/24/23 10:36 U Hyaline Cast (Auto) 0 /lpf (0-5) 03/24/23 10:36 U Epithel Cells (Auto) >30 /lpf (0-5) H 03/24/23 10:36 Urine Bacteria (Auto) Negative (Negative) 03/24/23 10:36
[2023-03-24] MEDS ORDERED: fentaNYL citrate PF 100 MCG/2 ML VIAL IV PRN (14:33)
[2023-03-24] MEDS ORDERED: ePHEDrine sulfate 50 MG/ML AMP IV PRN (14:33)
[2023-03-24] MEDS ORDERED: HYDROmorphone INJ 2 MG/ML SYR/VIAL IV PRN (14:33)
[2023-03-24] MEDS ORDERED: ATROPINE SULFATE 0.1 MG/ML 10ML SYR IV PRN (14:33)
[2023-03-24] MEDS ORDERED: PROMETHAZINE HCL 12.5 MG in SODIUM CHLORIDE 0.9% 50 ML IV PRN ×2 (14:33→17:19)
[2023-03-24] MEDS ORDERED: ONDANSETRON INJ 2 MG/ML 2 ML VIAL IV PRN ×2 (14:33→17:19)
[2023-03-24] MEDS ORDERED: ROCURONIUM BROMIDE 10 MG/ML 5 ML VIAL IV ONE (15:23)
[2023-03-24] MEDS ORDERED: PROPOFOL IV EMULSION 10 MG/ML 20 ML VIAL IV ONE ×2 (15:23→15:25)
[2023-03-24] MEDS ORDERED: LIDOCAINE 2% 2 ML VIAL/AMP(20MG/ML) INFIL ONE (15:23)
[2023-03-24] MEDS ORDERED: DEXAMETHASONE SOD INJ 4 MG/ML VIAL ONE (15:23)
--- NOTE | 2023-03-24 15:27 | Post Operative Brief Note ---
Immediate Post Op Note v1 Date of Surgery March 24, 2023 Pre & Post Diagnosis Operation Date: 03/24/23 10:30 Pre-Op Diagnosis: Acute appendicitis Post-Op Diagnosis: Acute appendicitis I identified the patient and participated in the time-out.: Yes Procedure Operation Date: 03/24/23 10:30 Actual Procedures p Laparoscopic Appendectomy(Not Applicable) - Piyush Minaya MD Surgeon Piyush Minaya MD Telegraph Repeater Installer ADI Ho assisted with tissue retraction, camera op, closure Estimated Blood Loss 5 Findings Consistent with Post-Op Diagnosis Drains Good Catheter
--- NOTE | 2023-03-24 15:30 | Operative Report ---
Post Operative Report Pre & Post Diagnosis Operation Date: 03/24/23 10:30 Pre-Op Diagnosis: Acute appendicitis Post-Op Diagnosis: Acute appendicitis I identified the patient and participated in the time-out.: Yes Procedure Operation Date: 03/24/23 10:30 Actual Procedures p Laparoscopic Appendectomy(Not Applicable) - Piyush Minaya MD Surgeon Piyush Minaya MD Internal Grinder Set Up Operator ADI Ho assisted with tissue retraction, camera op, closure Estimated Blood Loss 5 Findings Consistent with Post-Op Diagnosis Acute appendicitis, no perforation or abscess Specimens Appendix Drains None Anesthesia Type General Complications No immediate complications Description of Procedure The patient was taken to the operating room, and placed supine on the operating table. A timeout was performed, perioperative antibiotics were administered, SCD boots were placed. After adequate anesthesia and analgesia was obtained, the abdomen was prepped and draped in the normal sterile fashion. A 1 cm incision was made in the supraumbilical region and carried down to the level of the fascia. A trach hook was used to grasp the fascia and elevated and a varies needle was used to enter the abdominal cavity. The abdomen was insufflated to a pressure of 15 mmHg, and a 5 mm trocar was placed in this location. A 5 mm 30 degree laparoscope was placed into the abdominal cavity, and the abdomen was surveyed. The patient was placed in Trendelenburg and slightly to the left. Due to body habitus, we shifted our trocars. One 5 mm trocar was placed in the right upper quadrant, and one 5 mm trocar was placed in the upper midline under direct visualization. The 5 mm trocar at the umbilicus was switched to a 12 mm trocar. The right colon was identified and traced down to the cecum. Again, due to morbid obesity and body habitus, we had difficulty getting to the appendix, which was in the retrocecal plane. Another 5 mm trocar was placed in the lower midline for a fan retractor. Then the appendix was identified and elevated anteriorly and medially. A window was created at the base of the appendix with a [place] dissector. The Endo CHESTER stapler was used to transect the appendix at its base through noninflamed tissue, and subsequently the mesoappendix. The appendix was placed in an Endo Catch bag, and removed via the left lower quadrant port site. Attention was turned to hemostasis, which was excellent. The abdomen was copiously irrigated and suctioned free, and again hemostasis was found to be excellent. All trochars removed under direct visualization. The abdomen was desufflated. The fascia in the 12 mm port site was closed with a 0 Vicryl suture. The skin was closed with a running 4-0 Monocryl subcuticular stitch. Dermabond was applied. The patient tolerated the procedure without complication, and was transferred in stable condition to the PACU. All instrument, needle, and sponge counts were correct at the end of the case. My sugar laboratory assistant was necessary throughout the procedure for tissue retraction, possible camera operation, and closure of the wounds. I understand that section 1842(b)(7)(D) of the Social Security act generally prohibits Medicare physician fee schedule payment for the services of assistants at surgery in teaching hospitals when qualified residents are available to furnish such services. I certify that the services for which payment is claimed were medically necessary and that no qualified resident was available to perform the services. I further understand that these services are subject to postpayment review by the Medicare carrier. I attest to the content of the Intraoperative Record and any orders documented therein. Any exceptions are noted below.
[2023-03-24] MEDS ORDERED: SUGAMMADEX SODIUM 200 MG/2 ML VIAL IV ONE ×2 (15:33→15:44)
--- NOTE | 2023-03-24 16:29 | Anesthesiology Progress Note ---
Date of Service March 24, 2023 Anesthesia Post Procedure Vital Signs Vital Signs: Temp Pulse Pulse Pulse Resp BP Pulse Ox 03/24/23 16:25 36.6 C 85 16 161/80 H 98 03/24/23 16:15 88 22 154/84 H 98 03/24/23 16:05 93 H 20 153/74 H 94 03/24/23 15:54 36 C L 94 H 20 165/93 H 98 03/24/23 13:22 37.1 C 85 20 168/93 H 96 03/24/23 12:14 87 18 146/81 H 96 03/24/23 10:41 99 03/24/23 10:41 112 H 16 138/94 99 03/24/23 10:19 36.9 C 102 H 18 95 O2 Del Method O2 Flow Rate 03/24/23 16:25 Nasal Cannula 2 03/24/23 16:15 Nasal Cannula 2 03/24/23 16:05 Nasal Cannula 2 03/24/23 15:54 Nasal Cannula 3 03/24/23 13:22 Room Air 03/24/23 12:14 Room Air 03/24/23 10:41 Room Air 03/24/23 10:41 Room Air 03/24/23 10:19 Room Air Pain Intensity Abdomen: Pain Intensity: 4 Transfer of Care Handoff Completed per policy Notes Mental Status: alert / awake / arousable Patient Amnestic to Procedure: Yes Nausea / Vomiting: adequately controlled Pain: adequately controlled Airway Patency, RR, SpO2: stable & adequate BP & HR: stable & adequate Hydration State: stable & adequate Anesthetic Complications: no major complications apparent and Pt Satisfied with anesthetic care
[2023-03-24] MEDS ORDERED: diphenhydrAMINE Capsule 25 MG CAP PO PRN (17:19)
[2023-03-24] MEDS ORDERED: oxyCODONE HCL IR 5 MG TAB (IMMEDIATE RELEASE) PO PRN (17:19)
[2023-03-24] MEDS ORDERED: KETOROLAC 30 MG/ML VIAL IV PRN (17:19)
[2023-03-24] MEDS ORDERED: MoRPHine SULFATE 2 MG/ML CARP IV PRN (17:19)
[2023-03-24] MEDS ORDERED: ACETAMINOPHEN 1,000 MG/100 ML VIAL IV PRN (17:19)
[2023-03-25] MEDS ORDERED: ENOXAPARIN INJ 40 MG/0.4 ML SYR SQ SCH (08:00)
--- NOTE | 2023-03-25 09:47 | Discharge Summary ---
Date of Service March 25, 2023 Admission HPI Per Admitting Provider Alyssa is a 57 year-old female with history of hypertension presented to ED with complaint of RLQ abdominal pain that began around 8 pm last evening which progressively increased in severity with associated nausea and one episode of vomiting this morning. No fevers, chills, chest pain, shortness of breath, changes of bowel habits, diarrhea, constipation, or blood in stools, no difficulty urinating or blood in urine. Prior history of c-sections. No history of blood clots or bleeding disorders. No blood thinning agents. ER work-up included labs which showed leukocytosis of 16k. CT scan of abdomen and pelvis with IV contrast showing dilated thick walled appendix measuring 13 mm with periappendiceal stranding consistent with acute appendicitis. She currently states her pain is minimal but had pain medication about 1.5 hour ago which controlled pain. Principal Diagnosis Acute appendicitis Discharge Exam Constitutional WD/WN, vitals as above + morbidly obese, healthy appearing, cooperative and comfortable; no acute distress and not ill appearing Respiratory normal respiratory effort; no respiratory distress Gastrointestinal (Abdomen) Inspection/Auscultation: abdomen normal to inspection and + abdominal surgical incision (clean/dry/intact with dermabond); abdomen not distended Percussion/Palpation: abdomen soft; abdomen nontender, no guarding and abdomen not rigid Skin no rashes, warm and dry Psychiatric A+Ox3, euthymic affect Discharge Data Allergies Allergy/AdvReac Type Severity Reaction Status Date / Time No Known Allergies Allergy Verified 03/24/23 12:54 Consultations 03/24/23 12:30 ED Decision to Admit Stat Procedures Performed Operation Date: 03/24/23 10:30 Actual Procedures p Laparoscopic Appendectomy(Not Applicable) - Piyush Minaya MD Ordered Studies 03/24/23 10:32 CT abd pelvis IV con only Stat Hospital Course (1) Acute appendicitis: Plan Patient was taken to operating room for laparoscopic appendectomy by Dr. Minaya on 03/24/2023. Patient found to have acute appendicitis without perforation or rupture. Patient tolerated procedure without difficulty and was transferred to recovery then to medical/surgical floor for postop care. Diet was advanced as tolerated, activity as tolerated, PO Percocet as needed for pain management, SCDs and lovenox for DVT prophylaxis. POD # 1 avss, patient doing extremely well with minimal to no abdominal pain, preop pain resolved, tolerated clear liquids without n,v. Patient encouraged to ambulate hallway and diet was advanced to regular diet. Patient discharged home in afternoon of POD # 1 in stable condition. Total Time Total Time Spent Total Time Spent (In Minutes): 20 Total Time Includes: Examination of the Patient, Discharge Planning and Medication Reconciliation Discharge Plan Discharge Items Patient Disposition: Home - Self-Care Reason For Visit: ACUTE APPENDICITIS Discharge Diagnosis: Acute appendicitis Activity: Per Instructions section Non-emergency contact: Primary Care Provider and Surgeon Call non-emergency contact if: you have any medication questions, your pain is not controlled, your pain is worsening, your pain is concerning for you, you have a fever, your temperature is above 101, your wound has increased redness, your wound has increased drainage and your wound pain has increased Follow-up/Referrals: Helga Evans MD [Primary Care Provider] - Alina Ho PA-C [Physician Candle Maker] - (2 weeks) Diet: Regular Addtl Attending Provider Instructions: Post-Surgical ~Discharge Instructions Activity Recommendations: - lifting limitation: (20 pounds for 3 weeks), - exercise/sex/sports limit: (nonstrenuous for 2 weeks), - driving or machine use limit: (no driving while having pain or taking pain medication, - Shower/bathe limit: (may shower beginning tonight, no submerging underwater for 2 weeks) Diet: - Resume previous diet SPECIAL CARE INSTRUCTIONS: - May shower tonight. Let water run over area and pat dry. - Surgical glue will fall off on its own. Do not pick at it. - Call the surgeon's office with any questions or concerns - - (ex. temperature higher than 101 degrees F, excessive bleeding or pain). MEDICATIONS: - Resume previous medications unless instructed otherwise by your surgeon. - May alternate extra strength Tylenol and Ibuprofen as needed for mild to moderate pain -650 mg Tylenol every 6 hours as needed - Ibuprofen 600 mg every 6 hours as needed (take with food) FOLLOW UP VISIT: - If not already scheduled, please call the office to schedule a two week follow-up appointment. Office number Pending Studies at Discharge: Yes (appendix pathology will be reviewed at postop visit) Stand-Alone Forms: My [facility], Smoking Cessation Medications and DC Order Prescriptions: Continued lisinopril 20 mg tablet 20 mg PO QAM Qty: 90 2RF Discharge Orders: Discharge Order (Routine); Ordered 03/25/23 Ordered By: Alina Ho Admission Data Admit Date/Time: 03/24/23 15:32 Attending Provider: Piyush Minaya Admit Provider: Piyush Minaya Primary Care Provider: Helga Evans Other Providers: Piyush Minaya
== END 2023-03-25 15:00 | disposition home or self-care (01) ==
LOC: ED 10:13 → OR 11:07 → 3W 11:07 → OR 13:24